=== PATIENT | male | born 1940 | race Caucasian/White ===

== ENCOUNTER 2017-07-29 09:31 | Outpatient (RCR) | payer OTHER ==
[2017-10-18] MEDS ORDERED: LISI2.5T PO (10:47)
[2017-10-18] MEDS ORDERED: INSU100V5 SQ (10:47)
[2017-10-18] MEDS ORDERED: GABA600T2 PO (10:47)
[2017-10-18] MEDS ORDERED: PRAV40TA2 PO (10:47)
[2017-10-26] MEDS ORDERED: CIPR-226 PO (11:11)
[2017-10-26] MEDS ORDERED: ACET1TAB43 PO (11:11)
== END 2017-10-27 | disposition home or self-care (01) ==
LOC: ONC 09:31
PROVIDERS: ATTEND Radiology Radiation Oncology
DX: C61 Malignant neoplasm of prostate (principal)
CPT/HCPCS: 76873; 77331; 99215

== ENCOUNTER 2017-10-18 08:43 | Outpatient (CLI) | payer MEDICARE, OTHER ==
[~2017-10-18] VITALS: Ht 167.6 cm; Wt 72.8 kg
[2017-10-18 09:08] VITALS: BP 104/66
[2017-10-18 10:01] LABS: BILIRUBIN,URINE NEGATIVE (NEGATIVE); CLARITY,URINE CLEAR; COLOR,URINE YELLOW; GLUCOSE, URINE (UA) 4+ (NEGATIVE); KETONES,URINE NEGATIVE (NEGATIVE); LEUKOCYTE ESTERASE ,URINE 3+ (NEGATIVE); NITRITE,URINE NEGATIVE (NEGATIVE); PH,URINE 5 (5-9); PROTEIN,URINE NEGATIVE (NEGATIVE); UROBILINOGEN,URINE NORMAL (NORMAL)
[2017-10-18 10:09] LABS: BACTERIA,URINE FEW /HPF; RBC,URINE 0-2 /HPF; SQUAMOUS EPITHELIAL CELL,UR 0-2 /HPF
[2017-10-18] MEDS ORDERED: INSU100V5 SQ (10:47)
[2017-10-18] MEDS ORDERED: PRAV40TA2 PO (10:47)
[2017-10-18] MEDS ORDERED: LISI2.5T PO (10:47)
[2017-10-18] MEDS ORDERED: GABA600T2 PO (10:47)
--- NOTE | 2017-10-18 11:04 | Diagnostic Imaging Report ---
PA and lateral chest at 1006 hours. INDICATION: Preop prostate brachytherapy. There are no prior studies available for comparison. FINDINGS: Heart size is within normal limits. The perihilar markings are somewhat prominent but there is no sign of failure, pneumonia or pleural effusion to indicate an acute abnormality. On the PA view, there is an area of increased density overlying the left upper lung. This finding is more likely due to superimposition than to a parenchymal abnormality as there is no corresponding abnormality seen on the lateral view. Even so, I would recommend that an apical lordotic view be performed for further evaluation, unless there are previous exams available to demonstrate that this finding is stable. The mediastinum is not widened. The osseous structures are intact. IMPRESSION: 1. There is no evidence for an acute cardiopulmonary abnormality. 2. The area of increased density overlying the left upper lung is more likely due to superimposition than to a parenchymal abnormality. Recommendations as above. Dictated by: Dictated on workstation # [id number]
== END 2017-10-18 14:30 | disposition home or self-care (01) ==
LOC: PREOP 08:43
PROVIDERS: ATTEND Radiology Radiation Oncology
DX: Z01.811 Encounter for preprocedural respiratory examination (principal); Z01.812 Encounter for preprocedural laboratory examination; Z11.2 Encounter for screening for other bacterial diseases; C61 Malignant neoplasm of prostate; R82.90 Unspecified abnormal findings in urine
CPT/HCPCS: 71046; 81000; 87081; 87088; 93005

== ENCOUNTER 2017-10-26 09:10 | Day surgery (SDC) | payer MEDICARE, OTHER ==
[~2017-10-26] VITALS: Ht 167.6 cm; Wt 72.8 kg
[~2017-10-26 09:10] MED LIST: GABA600T2 PO; INSU100V5 SQ; LISI2.5T PO; PRAV40TA2 PO
[2017-10-26 09:12] VITALS: BP 127/82
[2017-10-26] MEDS ORDERED: LEVOFLOXACIN 500 MG/100 ML IV 100 ML IV ONE (10:00)
[2017-10-26] MEDS ORDERED: CATHETER FLUSH 10 ML SYR IV PRN (10:15)
--- NOTE | 2017-10-26 11:03 | Progress Note-Pre Operative ---
Pre-Operative Progress Note H&P Reviewed The H&P was reviewed, patient examined and no changes noted. Date Seen by Provider: Oct 26, 2017 Time Seen by Provider: 11:03 Date H&P Reviewed: Oct 26, 2017 Time H&P Reviewed: 11:03 Pre-Operative Diagnosis: Prostate cancer cT1c, PSa 9.2, [place] 7 (3+4) CHARLOTTE DORADO MD Oct 26, 2017 11:03
--- NOTE | 2017-10-26 11:08 | Discharge Inst-Simple/Standard ---
Discharge Inst-Standard Discharge Medications New, Converted or Re-Newed RX: RX Given to Pt/Family Patient Instructions/Follow Up Plan of Care/Instructions/FU: 1)Follow up with Dr. Johnson 11/21/17 at 2:15 pm 2) Follow up at [facility] 11/24/17 at 10:30 am for post implant scan Activity as Tolerated: Yes Discharge Diet: No Restrictions Other Inst to Patient Patient to remove catheter early a.m. 10/28 or need to make arrangements for removal at Dr. Johnson's office that morning. CHARLOTTE DORADO MD Oct 26, 2017 11:08
[2017-10-26] MEDS ORDERED: CIPR-226 PO (11:11)
[2017-10-26] MEDS ORDERED: ACET1TAB43 PO (11:11)
[2017-10-26] MEDS ORDERED: inSUlin ASPART (NovoLOG) 1 UNIT/0.01 ML (CHARGE PER UNIT) SC ONE ×2 (11:15→12:15)
[2017-10-26] MEDS ORDERED: fentaNYL INJECTION 100 MCG/2 ML AMP ONE (11:17)
[2017-10-26] MEDS ORDERED: proPOfol 200 MG/20 ML (DIPRIVAN) VIAL IV ONE (11:17)
[2017-10-26] MEDS ORDERED: LIDOCAINE PF 2% 5 ML (XYLOCAINE) VIAL ONE (11:17)
[2017-10-26] MEDS ORDERED: ONDANSETRON 4 MG/2 ML (SDV) Z0FRAN ONE (11:17)
[2017-10-26] MEDS ORDERED: SEVOFLURANE (ULTANE) 15 ML INHAL SOLN ONE (11:17)
[2017-10-26] MEDS: LACTATED RINGERS 1,000 ML IV PRN ×2 (12:03→12:55)
[2017-10-26] MEDS ORDERED: ONDANSETRON 4 MG/2 ML (SDV) Z0FRAN IVP PRN (12:45)
[2017-10-26] MEDS ORDERED: morphine INJ 10 MG/ML 1ML (SYR OR VIAL) IVP PRN (12:45)
--- NOTE | 2017-10-26 13:33 | Progress Note-Post Operative ---
Post-Operative Progess Note Surgeon (s)/Window And Siding Craftsman (s) Surgeon CHARLOTTE DORADO MD Window And Siding Craftsman: Chuy GAMBINO MD Pre-Operative Diagnosis Prostate cancer cT1c, PSa 9.2, [place] 7 (3+4) Post-Operative Diagnosis Same as pre-op Procedure & Operative Findings Date of Procedure 10/26/17 Procedure Performed/Findings 115 Gy Cesium 131 permanent prostate seed implant with cystogram prostate volume 40.05 cc Anesthesia Type General Estimated Blood Loss Estimated blood loss (mL): Minimal Specimens/Packing Specimens Removed N/A Packing: N/A CHARLOTTE DORADO MD Oct 26, 2017 13:33
--- NOTE | 2017-10-26 13:55 | Diagnostic Imaging Report ---
INDICATION: Fluoroscopy for brachytherapy. Time of exam 1:03 PM Fluoroscopy was provided during performance of brachytherapy. 14 seconds of fluoroscopy time was utilized. A single image over the midline of the lower pelvis was obtained demonstrating radiation seed implants within the prostate. IMPRESSION: Fluoroscopy for brachytherapy. Dictated by: Dictated on workstation # [id number]
[2017-10-26 14:10] VITALS: BP 128/81
[2017-10-26 14:40] VITALS: BP 117/77
[2017-10-26 15:15] VITALS: BP 123/79
[2017-10-26 15:30] VITALS: BP 123/79
== END 2017-10-26 15:30 | disposition home or self-care (01) ==
LOC: SDC 09:10
PROVIDERS: ATTEND Radiology Radiation Oncology
DX: C61 Malignant neoplasm of prostate (principal); E11.40 Type 2 diabetes mellitus with diabetic neuropathy, unspecified; E78.00 Pure hypercholesterolemia, unspecified; E78.5 Hyperlipidemia, unspecified; I25.10 Atherosclerotic heart disease of native coronary artery without angina pectoris; I25.2 Old myocardial infarction; H40.9 Unspecified glaucoma; Z95.5 Presence of coronary angioplasty implant and graft; Z87.891 Personal history of nicotine dependence; Z79.899 Other long term (current) drug therapy
CPT/HCPCS: 76965; 77290; 77318; 77332; 77336; 77470; 77778; 82962

== ENCOUNTER 2017-11-24 09:44 | Outpatient (RCR) | payer MEDICARE ==
[~2017-11-24 09:44] MED LIST changes: +ACET1TAB43 PO; +CIPR-226 PO
== END 2018-02-22 | disposition home or self-care (01) ==
LOC: ONC 09:44
PROVIDERS: ATTEND Radiology Radiation Oncology
DX: C61 Malignant neoplasm of prostate (principal)
CPT/HCPCS: 77290

== ENCOUNTER 2017-12-29 10:45 | Outpatient (RCR) | payer MEDICARE | END 2018-03-29 | disposition home or self-care (01) | LOC: ONC 10:45 | PROVIDERS: ATTEND Radiology Radiation Oncology | DX: Z51.0 Encounter for antineoplastic radiation therapy (principal); C61 Malignant neoplasm of prostate | CPT/HCPCS: 77295; 77336 ==

== ENCOUNTER 2018-05-02 13:13 | Outpatient (RCR) | payer MEDICARE | END 2018-05-12 | disposition home or self-care (01) | LOC: ONC 13:13 | PROVIDERS: ATTEND Radiology Radiation Oncology | DX: C61 Malignant neoplasm of prostate (principal) | CPT/HCPCS: 84153; 99213 ==

== ENCOUNTER → 2018-11-02 | Outpatient (CLI) | payer MEDICARE ==
[~2018-11-02] MED LIST changes: -GABA600T2 PO; +GBPN600T PO
== END ==
LOC: EDSTATUS 06-12 10:03 → ONC 10:05
PROVIDERS: ATTEND Radiology Radiation Oncology
DX: C61 Malignant neoplasm of prostate (principal)
CPT/HCPCS: 36415; 84153

== ENCOUNTER → 2019-05-02 | Outpatient (CLI) | payer MEDICARE | LOC: LAB 09:03 | PROVIDERS: ATTEND Radiology Radiation Oncology | DX: Z01.89 Encounter for other specified special examinations (principal) | CPT/HCPCS: 36415; 84153 ==